=== PATIENT | female | born 1955 | race Caucasian/White ===

== ENCOUNTER 2024-01-26 10:00 | Emergency (ER) | payer MEDICARE, OTHER, SELFPAY ==
[2024-01-26 10:01] VITALS: BP 157/83
[2024-01-26 11:25] LABS: % Basophils 0.7 % (0-2); % Eosinophils 0.9 % (0-6); % Immature Granulocytes 0.2 % (0-0.5); % Lymphocytes 30.1 % (20.5-51.1); % Monocytes 11.5 % (1.7-9.3); % Neutrophils 56.6 % (42.2-75.2); Absolute Lymphocytes 1.3 10^3/uL (1.2-3.4); Absolute Monocytes 0.5 10^3/uL (0.1-0.6); Absolute Neutrophils 2.5 10^3/uL (1.4-6.5); Hematocrit 43.6 % (37.0-47.0); Hemoglobin 14.6 g/dL (12.0-16.0); Mean Corp Hgb Conc. 33.5 g/dL (33.0-37.0); Mean Corpuscular Volume 98.4 fL (81.0-99.0); Mean Platelet Volume 9.6 fL (7.4-10.4); Nucleated Red Blood Cells % 0 %; Platelet Count 285 10^3/uL (130-400); Red Blood Cell Count 4.43 10^6/uL (4.20-5.40); Red Cell Dist. Width 12.4 % (11.5-14.5); White Blood Cell Count 4.4 10^3/uL (4.8-10.8)
[2024-01-26 11:33] LABS: Erythrocyte Sed Rate 11 mm/hour (0-20)
[2024-01-26 11:40] LABS: Blood Urea Nitrogen 24 mg/dl (7-17); Calcium 10.6 mg/dl (8.4-10.2); Carbon Dioxide 31 mmol/L (22-30); Chloride 100 mmol/L (98-107); Glucose 95 mg/dl (70-99); Potassium 4.7 mmol/L (3.5-5.1); Sodium 135 mmol/L (135-145); eGFR > 60.00
[2024-01-26 11:45] LABS: C-Reactive Protein < 5.00 mg/L (0.0-10.00)
--- NOTE | 2024-01-26 11:59 | ED.GENMED ---
History of Present Illness
<Gen Arriaga MD - Last Filed: 01/26/24 12:50>
General
Chief Complaint: Eye Problems
Source: patient
Exam Limitations: none
Time Seen by Provider: 01/26/24 10:55
Travel History
Have you had any contact with someone who has COVID-19?: No
Do you have any symptoms of coronavirus? Fever > 100 degrees, chills, cough, shortness of breath, sore throat, loss of taste or smell, muscle aches, or headache?: No
History of Present Illness
History of Present Illness:
68-year-old female sent in for a neurologic workup for possible neurosis fugax. Patient saw her [facility] eye physician earlier today. She may note that over the last 5 months she has had about 5 episodes these lasting a few minutes of blurriness to
start the medial to lateral of the eye. It is in a vertical fashion not horizontal. She has no unusual headache or other neurologic symptoms. After their evaluation they recommended labs sed rate CRP carotid ultrasound MRI echo. She did however
have an echocardiogram done in the last 6 months that was normal. Patient is asymptomatic at this time
Past History
<Gen Arriaga MD - Last Filed: 01/26/24 12:50>
Past History
ED Past Medical History: HTN and Hypercholesterolemia
Social History
Tobacco: Non-smoker
Phy Exam
<Gen Arriaga MD - Last Filed: 01/26/24 12:50>
Physical Exam
Physical Exam:
GENERAL: Alert and oriented in no apparent distress
EYE: Orbits normal.
NECK: Supple, no carotid bruit
ENT: Pharynx without erythema
CARDIAC: Regular rate and rhythm without any obvious murmurs.
LUNGS: Clear breath sounds,normal
ABDOMEN: Soft, without focal tenderness or distention
NEUROLOGICAL: Alert and oriented , grossly non-focal
SKIN: Warm and dry, no rash or lesion, no discoloration, skin intact.
MUSCULOSKELETAL: No edema,no deformity.Good color
PSYCH: Normal and appropriate interaction.
Course
<Gen Arriaga MD - Last Filed: 01/26/24 12:50>
Orders/Labs/Results
Orders:
Orders
01/26/24 11:05
Electrocardiogram (*1) Stat
Reason for Study: Other
Other Reason for Exam: neuro symptoms
Cardiac Monitoring- Treatment ONCE
EKG- Treatment ONCE
IV Insert/Care/Rem.- Treatment PRN
US Cerebrovascular Urgent
Comment:
Reason For Exam: amaurosis fugax
01/26/24 11:07
MR Brain Without Contrast Urgent
Comment:
Reason For Exam: amaurosis fugax
Recent pill cam endoscopy?: No
01/26/24 11:18
Basic Metabolic Panel Urgent
CRP [C-Reactive Protein] Urgent
Complete Blood Count/With Diff Urgent
Erythrocyte Sed Rate Urgent
Abnormal Lab Results
01/26/24
11:18
WBC 4.4 L 10^3/uL
(4.8-10.8)
MCH 33.0 H pg
(27.0-31.0)
Monocytes % 11.5 H %
(1.7-9.3)
Carbon Dioxide 31 H mmol/L
(22-30)
BUN 24 H mg/dl
(7-17)
Calcium 10.6 H mg/dl
(8.4-10.2)
01/26/24 11:18
01/26/24 11:18
Vital Signs
Initial and Last Documented VS:
Initial Vital Signs
Temp Pulse Resp BP Pulse Ox
98.1 F 65 16 157/83 100
01/26/24 10:01 01/26/24 10:01 01/26/24 10:01 01/26/24 10:01 01/26/24 10:01
Last Documented Vital Signs
Temp Pulse Resp BP Pulse Ox
98.1 F 73 16 154/71 100
01/26/24 10:01 01/26/24 15:08 01/26/24 15:08 01/26/24 15:08 01/26/24 15:08
<Phuc Medellin MD - Last Filed: 01/27/24 14:59>
Orders/Labs/Results
Orders:
Orders
01/26/24 11:05
Electrocardiogram (*1) Stat
Reason for Study: Other
Other Reason for Exam: neuro symptoms
Cardiac Monitoring- Treatment ONCE
EKG- Treatment ONCE
IV Insert/Care/Rem.- Treatment PRN
US Cerebrovascular Urgent
Comment:
Reason For Exam: amaurosis fugax
01/26/24 11:07
MR Brain Without Contrast Urgent
Comment:
Reason For Exam: amaurosis fugax
Recent pill cam endoscopy?: No
01/26/24 11:18
Basic Metabolic Panel Urgent
CRP [C-Reactive Protein] Urgent
Complete Blood Count/With Diff Urgent
Erythrocyte Sed Rate Urgent
Abnormal Lab Results
01/26/24
11:18
WBC 4.4 L 10^3/uL
(4.8-10.8)
MCH 33.0 H pg
(27.0-31.0)
Monocytes % 11.5 H %
(1.7-9.3)
Carbon Dioxide 31 H mmol/L
(22-30)
BUN 24 H mg/dl
(7-17)
Calcium 10.6 H mg/dl
(8.4-10.2)
01/26/24 11:18
01/26/24 11:18
Vital Signs
Initial and Last Documented VS:
Initial Vital Signs
Temp Pulse Resp BP Pulse Ox
98.1 F 65 16 157/83 100
01/26/24 10:01 01/26/24 10:01 01/26/24 10:01 01/26/24 10:01 01/26/24 10:01
Last Documented Vital Signs
Temp Pulse Resp BP Pulse Ox
98.1 F 73 16 154/71 100
01/26/24 10:01 01/26/24 15:08 01/26/24 15:08 01/26/24 15:08 01/26/24 15:08
<Gen Arriaga MD - Last Filed: 01/26/24 12:50>
MDM/Problems Addressed
Differential Diagnosis Includes:
Discussed with neurology. ER workup in progress. Exam is unremarkable. Carotids negative. No clinical findings to support murmur or atrial fibrillation. Discussed with cardiology. Outpatient Holter monitor. Pending MRI.
<Gen Arriaga MD - Last Filed: 01/26/24 12:50>
*EKG
Interpreted by ED Provider?: Yes
Comparison EKG: no changes
Heart Rate: 65
Rate: normal
Rhythm: sinus
Lima: left axis deviation
Interval: normal interval
QRS Pattern: normal QRS
Ischemia: non-specific ST changes
<Phuc Medellin MD - Last Filed: 01/27/24 14:59>
*Critical Care Note
Total Time (30-74mins, 75-104mins- exclusive of procedures): Not Applicable
<Phuc Medellin MD - Last Filed: 01/27/24 14:59>
Update Note
Update Note:
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 Feels that pt can be followed at neurology office for routine outpatient consultation. Return precautions provided, i.e.
nausea/dizziness/vomiting.
ED Attending Note
<Gen Arriaga MD - Last Filed: 01/26/24 12:50>
-
Portions of this chart may have been created with voice recognition software.� Occasional wrong word or��sound alike� substitutions may have occurred due to the inherent limitations of voice recognition software.
Discharge Plan
Departure
Patient Disposition: Home (Routine Discharge)
Date of Disposition: 01/26/24
Time of Disposition: 14:56
Patient with high blood pressure during this ER visit?: Yes
Discharge Problem:
Transient recurrent right eye visual los
Instructions: Chest Pain CBC Follow Up, BLOOD PRESSURE
Referrals:
Yousuf Martínez MD [Active] -
Angelique Gilbert DO [Family Provider] - Follow up in 2-3 days
Activity Restrictions/Additional Instructions:
The cardiology group should contact you for follow-up to arrange Holter monitor or any other further cardiac testing
Follow-up closely with your primary physician, as well as referred neurologist as outpatient.
Return with recurrent visual loss or any other unusual neurologic symptoms, i.e. vomiting, dizziness/headache, walking difficulties.
Interventions
Interventions:
*Risk Screen - Suicide Last Done: 01/26/24 15:08
*General Assessment Last Done: 01/26/24 11:19
*Neglect/Abuse Screening Last Done: 01/26/24 15:08
ED- Fall Risk Assessment Last Done: 01/26/24 15:08
*ED COVID-19 Vaccine History Last Done: 01/26/24 10:01
*Nursing Disposition Last Done: 01/26/24 15:08
Discharge Date and Time
Discharge Date/Time: 01/26/24 15:09
Print Language: TELUGU
[2024-01-26 12:36] VITALS: BP 140/78
[2024-01-26 13:00] VITALS: BP 137/75
[2024-01-26 15:08] VITALS: BP 154/71
== END 2024-01-26 15:09 | disposition home or self-care (01) ==
LOC: EMR 10:00
PROVIDERS: EMERGENCY PHYSICIAN Emergency Medicine; FAMILY PHYSICIAN Family Medicine
DX: H53.121 Transient visual loss, right eye (principal); I10 Essential (primary) hypertension
CPT/HCPCS: 99285; 70551; 80048; 85025; 85652; 86140; 93005; 93880

== ENCOUNTER → 2024-02-28 09:13 | Outpatient (REF) | payer MEDICARE, OTHER, SELFPAY | LOC: RCS 09:13 | PROVIDERS: ATTENDING PHYSICIAN Family Medicine | DX: G45.3 Amaurosis fugax (principal) | CPT/HCPCS: 93225; 93226 ==

== ENCOUNTER → 2024-03-19 07:34 | Outpatient (REF) | payer MEDICARE, OTHER, SELFPAY | LOC: EMG 07:34 | PROVIDERS: ATTENDING PHYSICIAN Psychiatry & Neurology Neurology | DX: G56.03 Carpal tunnel syndrome, bilateral upper limbs (principal); R20.0 Anesthesia of skin | CPT/HCPCS: 95886; 95911 ==